=== PATIENT | male | born 2000 | race Hispanic/Latino ===

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

== ENCOUNTER 2020-10-08 00:12 | Emergency (ER) | payer OTHER ==
--- OUTSIDE RECORDS SUMMARY | 2020-10-08 00:18 | XMS REPORT | Continuity of Care Document ---
:2000 Author Organization [facility] t Address [address] [place] [address] Care Team Providers Name Role Phone Lane Martinez Attending Clinician Doctor Unassigned, Name Attending Clinician Unavailable Problems This patient has no known problems. Allergies, Adverse Reactions, Alerts This patient has no known allergies or adverse reactions. Medications This patient has no known medications. Procedures This patient has no known procedures. Encounters Start End Encounter Admission Attending Care Care Encounter Source Date/Time Date/Time Type Type Clinicians Facility Department ID 2020-07-08 2020-07-08 Letter Michelle LOPEZ [id number] 00:00:00 00:00:00 (Out) , Tristan MARQUEZ [id number] [facility] [id number] 2020-06-06 2020-06-06 Orders Doctor [id number] 00:00:00 00:00:00 Only UnassignedALMA [id number] [place] [id number] Results This patient has no known results.
[2020-10-08] MEDS ORDERED: ONDANSETRON 4 MG/2 ML VIAL ONE (01:19)
[2020-10-08] MEDS ORDERED: MORPHINE 4 MG/ML SYR ONE (01:19)
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
[2020-10-08 05:57] VITALS: BP 141/85; TEMP 99.1
[2020-10-08 06:03] VITALS: O2SAT 98
== END 2020-10-08 01:57 | disposition home or self-care (01) ==
LOC: ER 00:12
DX: T23.202A Burn of second degree of left hand, unspecified site, initial encounter (principal); T31.0 Burns involving less than 10% of body surface; X19.XXXA Contact with other heat and hot substances, initial encounter; Y92.000 Kitchen of unspecified non-institutional (private) residence as the place of occurrence of the external cause; F41.9 Anxiety disorder, unspecified; Z98.2 Presence of cerebrospinal fluid drainage device
CPT/HCPCS: 96375; 96374; 99284; J2405

== ENCOUNTER 2021-02-05 07:51 | Emergency (ER) | payer OTHER ==
--- OUTSIDE RECORDS SUMMARY | 2021-02-05 07:54 | XMS REPORT | Continuity of Care Document ---
:2000 Author Organization [facility] t Address [address] [place] [address] Care Team Providers Name Role Phone Tristan Martinez Attending Clinician Doctor Unassigned, Name Attending Clinician Unavailable Payers Payer Name Policy Type Policy Number Effective Date Expiration Date S ource Advance Directives Directive Decision Effective Termination Comments Source Date Date Healthcare Agents on N/A [facility] FileNameRelationshipHealth[facility] Agent Medical RelationshipCommunicationAs[facility] Care [phone] (Mobile) Problems Condition Condition Condition Status Onset Resolution Last Treating Co mments Source Name Details Category Date Date Treatment Clinician Date Shunt Shunt Disease Active [facility] malfunctio malfunctio 04-01 it y of n n 00:00: [place] 00 Medical Branch Allergies, Adverse Reactions, Alerts This patient has no known allergies or adverse reactions. Social History Social Habit Start Date Stop Date Quantity Comments Source Tobacco use and 2018-04-01 2018-04-01 Never used [facility] exposure 00:00:00 [facility] Sex Assigned At [birth year] [facility] 00:00:00 00:00:00 [facility] Branch Smoking Status Start Date Stop Date Source Never smoker [facility] Medications Ordered Filled Start Stop Current Ordering Indication Dosage Frequency Signature Comments Components Source Medication Medication Date Date Medication? Clinician (SIG) Name Name benzonatate 2018-0 Yes 100mg Take 1 Uni vers 100 mg 2-16 capsule by ity of capsule 00:00: mouth 3 [place] 00 (three) Medical times Branch daily as needed for Cough. DO NOT CHEW! ondansetron Yes 4mg Take 1 Univ ers (ZOFRAN 2-16 tablet by ity of ODT) 4 mg 00:00: mouth [place] disintegrat 00 every 8 Medic al ing tablet (eight) Branch hours as needed for Nausea and Vomiting (N/V). sod Yes 1{bottl Use 1 Univers chlor-bicar 2-16 e} Bottle in ity of b-squeez 00:00: each [place] bottle 00 nostril 2 Medical (NEILMED (two) Branch SINUS RINSE times COMPLETE) daily. Use pkdv in hot shower 1 hour before bedtime benzonatate Yes 100mg Take 1 Uni vers 100 mg 2-16 capsule by ity of capsule 00:00: mouth 3 [place] 00 (three) Medical times Branch daily as needed for Cough. DO NOT CHEW! ondansetron Yes 4mg Take 1 Univ ers (ZOFRAN 2-16 tablet by ity of ODT) 4 mg 00:00: mouth [place] disintegrat 00 every 8 Medic al ing tablet (eight) Branch hours as needed for Nausea and Vomiting (N/V). sod Yes 1{bottl Use 1 [facility] chlor-bicar 2-16 e} Bottle in ity of b-squeez 00:00: each [place] bottle 00 nostril 2 Medical (NEILMED (two) Branch SINUS RINSE times COMPLETE) daily. Use pkdv in hot shower 1 hour before bedtime Immunizations Ordered Filled Immunization Date Status Comments [facility] e Immunization Name Name SARS-COV-2 COVID-19 2020-07-04 Completed Unive rsity of PFIZER VACCINE 00:00:00 [facility] SARS-COV-2 COVID-19 2020-06-13 Completed Unive rsity of PFIZER VACCINE 00:00:00 [facility] Influenza Virus 2017-11-19 Completed Universit y of Vaccine 00:00:00 [facility] Influenza Virus 2017-11-19 Completed Universit y of Vaccine 00:00:00 [facility] Procedures Procedure Date / Time Performed Performing Clinician Sour e REFERRAL- 2020-06-06 05:01:00 Doctor Unassigned, No [facility] [place] REQUEST/RESPONSE Name Medical Branch Encounters Start End Encounter Admission Attending Care Care Encounter Source Date/Time Date/Time Type Type Clinicians Facility Department ID 2020-07-08 2020-07-08 Letter Michelle [id number] 00:00:00 00:00:00 (Out) , Tristan Sherman [facility] [id number] [facility] [id number] 2020-07-08 2020-07-08 Veronique Martinez [id number] Univers 00:00:00 00:00:00 (Out) , Tristan Sherman [facility] [id number] ity of HOSPITAL [id number] Bruce as [id number] [facility] 043 Branch 2020-06-06 2020-06-06 Orders Doctor JOHN [id number] Univers 00:00:00 00:00:00 Only Unassigned, [facility] [id number] [facility]y of [place] [facility] [id number] Bruce as [id number] [facility] 009 Branch 2020-06-06 2020-06-06 Orders Doctor JOHN [id number] 00:00:00 00:00:00 Only Unassigned, [facility] [id number] [facility] [id number] Results This patient has no known results.
[2021-02-05] MEDS ORDERED: METOCLOPRAMIDE 10 MG/2mL INJ ONE (08:24)
[2021-02-05] MEDS ORDERED: DIPHENHYDRAMINE 50 MG/ML VIAL ONE (08:24)
[2021-02-05 08:55] LABS: Absolute Lymphocytes (CBC) 2.3 K/uL (0.7-4.9); Basophils % 0.4 % (0-1.3); Hematocrit 42.8 % (39.6-49.0); MPV 9.2 fL (7.6-11.3)
[2021-02-05 09:10] LABS: BUN Blood Urea Nitrogen 11 mg/dL (7-18); Bicarbonate 31 mmol/L (21-32); Glucose Level 98 mg/dL (74-106); Potassium 3.9 mmol/L (3.5-5.1); Sodium Level 144 mmol/L (136-145)
--- NOTE | 2021-02-05 09:24 | RAD REPORT ---
EXAM DESCRIPTION: RAD - Shuntogram - 02/05/2021 9:12 am CLINICAL HISTORY: PAIN COMPARISON: Abdomen Exam Limited dated 09/24/2019 FINDINGS: Right-sided shunt tubing is noted. Calcification along the shunt tubing is seen proximally . No kink or break seen in the visualized tubing. The tip of the shunt tubing terminates in the left lower quadrant. The lungs are clear. The heart is normal in size. No worrisome bone lesion.
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
--- NOTE | 2021-02-05 09:40 | ER ---
Nurse's Notes [facility] Name: Prosper Hardin Age: 20 yrs Sex: Male : 2000 Arrival Date: 02/05/2021 Time: 07:52 Bed 12 Private MD: Tristan Martinez W Diagnosis: Migraine without aura, intractable Presentation: 02/05 08:14 Chief complaint: Patient states: i have pain around my shunt. i also have a headache tw2 for 2 weeks and am constipated. LBM:this Tuesday. Parent and/or Guardian states: he also has decreased appetite for 2 weeks. Coronavirus screen: headache, Client presents with at least one sign or symptom that may indicate coronavirus-19. Standard/surgical mask placed on the client. Provider contacted for isolation considerations. Ebola Screen: Patient denies travel to an Ebola-affected area in the 21 days before illness onset. Initial Sepsis Screen: Does the patient meet any 2 criteria? No. Patient's initial sepsis screen is negative. Does the patient have a suspected source of infection? No. Patient's initial sepsis screen is negative. Risk Assessment: Do you want to hurt yourself or someone else? Patient reports no desire to harm self or others. Onset of symptoms was February 05, 2021. 08:14 Method Of Arrival: Ambulatory tw2 08:14 Acuity: HERNANDEZ 3 tw2 Triage Assessment: 08:15 Headache History: The patient has had previous headaches and this one is similar to tw2 previous episodes. General: Appears in no apparent distress. slender, Behavior is calm, cooperative, appropriate for age. Pain: Complains of pain in left parietal area, right parietal area and occipital area Pain radiates to top of head and forehead Pain currently is 6 out of 10 on a pain scale. Pain began 2 weeks. Pain: Also complains of decreased appetite, constipation. EENT: Reports pain behind both eyes. Neuro: Reports headache. Respiratory: Airway is patent Respiratory effort is even, unlabored, Respiratory pattern is regular, symmetrical. GI: Abdomen is flat, Last BM was February 02, 2021. Reports constipation. Musculoskeletal: Range of motion: intact in all extremities. 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 - Social history:: Smoking status: Reported history of juuling and/or vaping. Screenin:06 Abuse screen: Denies threats or abuse. Nutritional screening: No deficits noted. tw2 Tuberculosis screening: No symptoms or risk factors identified. Fall Risk None identified. Assessment: 08:23 Reassessment: see triage assessment. tw2 09:17 Reassessment: Patient appears in no apparent distress at this time. Patient and/or tw2 family updated on plan of care and expected duration. Pain level reassessed. Patient is alert, oriented x 3, equal unlabored respirations, skin warm/dry/pink. Patient states symptoms have improved. 09:48 Reassessment: Patient appears in no apparent distress at this time. Patient and/or tw2 family updated on plan of care and expected duration. Pain level reassessed. Patient is alert, oriented x 3, equal unlabored respirations, skin warm/dry/pink. Patient states feeling better. Patient states symptoms have improved. Vital Signs: 08:14 BP 128 / 76; Pulse 67; Resp 18; Temp 97.9; Pulse Ox 100% on R/A; tw2 09:48 BP 110 / 74; Pulse 79; Resp 17; Pulse Ox 99% on R/A; Pain 3/10; tw2 ED Course: 07:52 Patient arrived in ED. am2 07:53 Tristan Martinez MD is Private Physician. am2 08:03 Bed in low position. Call light in reach. Adult w/ patient. Pulse ox on. NIBP on. tw2 08:05 Roel Hammer PA is PHCP. jr8 08:05 Kareem Anders MD is Attending Physician. jr8 08:05 Rebekah Warner, VINH is Primary Nurse. tw2 08:15 Triage completed. tw2 08:23 Arm band placed on. tw2 08:26 Inserted saline lock: 20 gauge in right antecubital area, using aseptic technique. tw2 Blood collected. 09:12 Shuntogram XRAY In Process Unspecified. EDMS 09:18 Warm blanket given. tw2 09:48 No provider procedures requiring assistance completed. IV discontinued, intact, tw2 bleeding controlled, No redness/swelling at site. Pressure dressing applied. Administered Medications: 08:28 Drug: Reglan (metoCLOPramide) 10 mg Route: IVP; Site: right antecubital; tw2 09:17 Follow up: Response: No adverse reaction; Pain is decreased tw2 08:38 Drug: Benadryl (diphenhydrAMINE) 25 mg Route: IVP; Site: right antecubital; tw2 09:18 Follow up: Response: No adverse reaction; Pain is decreased tw2 Outcome: 09:40 Discharge ordered by . jr8 09:48 Discharged to home ambulatory, with family. tw2 09:48 Condition: stable 09:48 Discharge instructions given to patient, family, Instructed on discharge instructions, follow up and referral plans. Demonstrated understanding of instructions, follow-up care. 09:48 Patient left the ED. tw2 Signatures: Dispatcher [employer] EDRoel Zarate PA PA jr8 Rebekah Warner RN RN tw2 Rhea Espinoza am2
[2021-02-05 09:59] VITALS: TEMP 97.9
[2021-02-05 10:01] VITALS: BP 110/74; O2SAT 99
== END 2021-02-05 09:48 | disposition home or self-care (01) ==
LOC: ER 07:51
DX: G43.019 Migraine without aura, intractable, without status migrainosus (principal); F41.9 Anxiety disorder, unspecified; Z98.2 Presence of cerebrospinal fluid drainage device
CPT/HCPCS: 85025; 80048; 36415; 75809; 49427; 96375; 96374; 99284; J2765; J1200

== ENCOUNTER 2021-02-26 20:48 | Emergency (ER) | payer OTHER ==
--- OUTSIDE RECORDS SUMMARY | 2021-02-26 20:52 | XMS REPORT | Continuity of Care Document ---
:2000 Author Organization [facility] t Address [address] [place] [address] Care Team Providers Name Role Phone Tristan Martinez Attending Clinician Doctor Unassigned, Name Attending Clinician Unavailable Payers Payer Name Policy Type Policy Number Effective Date Expiration Date S ource Advance Directives Directive Decision Effective Termination Comments Source Date Date Healthcare Agents on N/A [facility] FileNameRelationshipHealthCore[facility] Agent Medical RelationshipCommunicationOhiohealth [facility] Gina MakiPrem[facility] Care [phone] (Mobile) Problems Condition Condition Condition Status Onset Resolution Last Treating Co mments Source Name Details Category Date Date Treatment Clinician Date Shunt Shunt Disease Active [facility] malfunctio malfunctio 04-01 it y of n n 00:00: [place] 00 [facility] Allergies, Adverse Reactions, Alerts This patient has no known allergies or adverse reactions. Social History Social Habit Start Date Stop Date Quantity Comments Source Tobacco use and 2018-04-01 2018-04-01 Never used [facility] exposure 00:00:00 00:00:00 [facility] Sex Assigned At 2000 2000 [facility] 00:00:00 00:00:00 [facility] Smoking Status Start Date Stop Date Source Never smoker [facility] Medications Ordered Filled Start Stop Current Ordering [...] Immunizations Ordered Filled Immunization Date Status Comments [facility] e Immunization Name Name SARS-COV-2 COVID-19 2020-07-04 Completed Unive rsity of PFIZER VACCINE 00:00:00 [facility] SARS-COV-2 COVID-19 2020-06-13 Completed Unive rsity of PFIZER VACCINE 00:00:00 [facility] Influenza Virus 2017-11-19 Completed Universit y of Vaccine 00:00:00 [facility] Influenza Virus 2017-11-19 Completed Universit y of Vaccine 00:00:00 [facility] Procedures Procedure Date / Time Performed Performing Clinician Sour e REFERRAL- 2020-06-06 05:01:00 Doctor Unassigned, No [facility] [place] REQUEST/RESPONSE Name Medical Branch Encounters Start End Encounter Admission Attending Care Care Encounter Source Date/Time Date/Time Type Type Clinicians Facility Department ID 2020-07-08 2020-07-08 Letter Michelle [id number] 00:00:00 00:00:00 (Out) , Tristan Sherman [facility] [id number] [facility] [id number] 043 2020-07-08 2020-07-08 Veronique Martinez [id number] Univers 00:00:00 00:00:00 (Out) , Tristan Sherman [facility] [id number] [facility]y of HOSPITAL [id number] Bruce as [id number] [facility] 043 Branch 2020-06-06 2020-06-06 Orders Doctor JOHN [id number] Univers 00:00:00 00:00:00 Only Unassigned, [facility] [id number] [facility]y of [place] [facility] [id number] Bruce as [id number] [facility] 009 Branch 2020-06-06 2020-06-06 Orders Doctor JOHN [id number] 00:00:00 00:00:00 Only Unassigned, [facility] [id number] [place] [facility] [id number] [id number] Results This patient has no known results.
[2021-02-26] MEDS ORDERED: IBUPROFEN 400 MG TAB ONE (22:03)
--- NOTE | 2021-02-26 23:10 | EDPHYS ---
Physician Documentation [facility] Name: Prosper Hardin Age: 20 yrs Sex: Male : 2000 Arrival Date: 02/26/2021 Time: 20:51 Bed 10 Private MD: Tristan Martinez W ED Physician Dheeraj Koch HPI: 02/26 22:00 This 20 yrs old Male presents to ER via Ambulatory with complaints of Foot Injury. cp 22:00 The patient presents with an injury, pain, that is acute. The complaints affect the cp dorsum of left foot. 22:00 Onset: The symptoms/episode began/occurred 10 day(s) ago. cp 22:00 Context: resulted from wrestling with girlfriend, the patient can fully bear weight, cp the patient is able to ambulate, with mild difficulty, Problem is a result from a previous injury: No. Associated signs and symptoms: Pertinent negatives calf tenderness, numbness, tingling. Historical: - Allergies: 22:07 No Known Allergies; lp1 - Home Meds: 22:07 lamotrigine 25 mg Oral TbDi 1 tab once daily [Active]; lp1 - PMHx: 22:07 Anxiety; Hydrocephalus; SEWER CONNECTOR SHUNT; lp1 - PSHx: 22:07 SEWER CONNECTOR shunt; lp1 - Immunization history:: Client reports receiving the 2nd dose of the Covid vaccine. - Social history:: Smoking status: Reported history of juuling and/or vaping. ROS: 22:05 MS/extremity: Positive for pain, tenderness, of the dorsum of left foot, Negative for cp decreased range of motion, deformity. 22:05 Constitutional: Negative for fever. cp 22:05 Skin: Negative for cellulitis, rash. 22:05 All other systems are negative. Exam: 22:10 Constitutional: The patient appears in no acute distress, alert, awake, well developed, cp well nourished. 22:10 Head/Face: Normocephalic, atraumatic. cp 22:10 Cardiovascular: Rate: normal. 22:10 Respiratory: the patient does not display signs of respiratory distress, Respirations: normal, no use of accessory muscles, no retractions. 22:10 Musculoskeletal/extremity: Extremities: grossly normal except: noted in the dorsum of left foot: pain, tenderness, There is no evidence of decreased ROM, deformity, swelling, Perfusion: the extremity is normally perfused throughout, Sensation intact. 22:10 Skin: cellulitis, is not appreciated, no rash present. Vital Signs: 21:15 BP 126 / 70; Pulse 77; Resp 16; Temp 98.9; Pulse Ox 100% on R/A; Weight 69.85 kg; da3 Height 5 ft. 9 in. (175.26 cm); 21:15 Body Mass Index 22.74 (69.85 kg, 175.26 cm) da3 MDM: 21:45 Patient medically screened. cp 22:00 Differential diagnosis: dislocation, closed fracture, contusion, tendonitis. cp 23:10 Data reviewed: vital signs, nurses notes, radiologic studies, plain films. cp 23:10 Test interpretation: by ED physician or midlevel provider: plain radiologic studies. cp Counseling: I had a detailed discussion with the patient and/or guardian regarding: the historical points, exam findings, and any diagnostic results supporting the discharge/admit diagnosis, radiology results, to return to the emergency department if symptoms worsen or persist or if there are any questions or concerns that arise at home. Response to treatment: the patient's symptoms have mildly improved after treatment, and as a result, I will discharge patient. 02/26 21:23 Order name: Foot Left 3 View XRAY lp1 02/26 22:54 Order name: Crutches; Complete Time: 23:20 cp Administered Medications: 22:06 Drug: Ibuprofen 800 mg Route: PO; lp1 22:55 Follow up: Response: No adverse reaction lp1 Disposition: 23:20 Chart complete. cp 02/27 05:36 Co-signature as Attending Physician, Dheeraj Koch MD I agree with the assessment and rn plan of care. Attestation: The patient's history, exam findings, diagnostics, and a summary of any interventions or procedures was reviewed in detail with Santiago MAGDALENO. Disposition Summary: 02/26/21 23:10 Discharge Ordered Location: Home cp Problem: new cp Symptoms: have improved cp Condition: Stable cp Diagnosis - Other sprain of left foot cp Followup: cp - With: Private Physician - When: 2 - 3 days - Reason: Worsening of condition Discharge Instructions: - Discharge Summary Sheet cp - Foot Sprain cp Forms: - Medication Reconciliation Form cp - Thank You Letter cp - Work release form lp1 - Antibiotic Education cp - Prescription Opioid Use cp Prescriptions: - Ibuprofen 800 mg Oral Tablet - take 1 tablet by ORAL route every 8 hours As needed take with food; 30 tablet; cp Refills: 0, Product Selection Permitted Signatures: Dispatcher [employer] Dheeraj Bower MD MD rn Pena, Laura RN RN lp1 Santiago Wilks PA PA cp Allan, David RN RN da3
--- NOTE | 2021-02-26 23:10 | ER ---
Nurse's Notes [facility] Name: Prosper Hardin Age: 20 yrs Sex: Male : 2000 Arrival Date: 02/26/2021 Time: 20:51 Bed 10 Private MD: Tristan Martinez W Diagnosis: Other sprain of left foot Presentation: 02/26 21:15 Chief complaint: Patient states: lt foot pain. Coronavirus screen: Vaccine status: da3 Patient reports receiving the 2nd dose of the covid vaccine. Ebola Screen: No symptoms or risks identified at this time. Initial Sepsis Screen: Does the patient have a suspected source of infection? No. Patient's initial sepsis screen is negative. Risk Assessment: Do you want to hurt yourself or someone else? Patient reports no desire to harm self or others. Onset of symptoms was February 16, 2021. 21:15 Method Of Arrival: Ambulatory da3 21:15 Acuity: HERNANDEZ 4 da3 21:59 Initial Sepsis Screen: Does the patient meet any 2 criteria? No. Patient's initial lp1 sepsis screen is negative. Triage Assessment: 21:19 General: Appears in no apparent distress. comfortable, Behavior is calm, cooperative. da3 Pain: Denies pain. Complains of pain in left foot Pain currently is 8 out of 10 on a pain scale. Injury Description: pt accidentally kicked friends husain and injured foot. 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 - Social history:: Smoking status: Reported history of juuling and/or vaping. Screenin:46 Abuse screen: Denies threats or abuse. Denies injuries from another. Nutritional lp1 screening: No deficits noted. Tuberculosis screening: No symptoms or risk factors identified. Fall Risk None identified. Assessment: 22:06 General: Appears in no apparent distress. Behavior is appropriate for age. Pain: lp1 Complains of pain in dorsum of left foot Pain currently is 6 out of 10 on a pain scale. Quality of pain is described as aching. Neuro: Level of Consciousness is awake, alert, obeys commands. Cardiovascular: Patient's skin is warm and dry. Respiratory: Respiratory effort is even, unlabored. GI: No signs and/or symptoms were reported involving the gastrointestinal system. : No signs and/or symptoms were reported regarding the genitourinary system. EENT: No signs and/or symptoms were reported regarding the EENT system. Derm: Skin is pink, warm \T\ dry. Musculoskeletal: Circulation, motion, and sensation intact. Range of motion: intact in all extremities, Reports pain in dorsum of left foot since 10 days ago. Vital Signs: 21:15 BP 126 / 70; Pulse 77; Resp 16; Temp 98.9; Pulse Ox 100% on R/A; Weight 69.85 kg; da3 Height 5 ft. 9 in. (175.26 cm); 21:15 Body Mass Index 22.74 (69.85 kg, 175.26 cm) da3 ED Course: 20:51 Patient arrived in ED. es 20:51 Tristan Martinez MD is Private Physician. es 21:19 Triage completed. da3 21:39 Santiago Wilks PA is PHCP. cp 21:39 Dheeraj Koch MD is Attending Physician. cp 21:46 Shana Dorado, VINH is Primary Nurse. lp1 21:46 Arm band placed on. lp1 21:46 Patient has correct armband on for positive identification. lp1 22:02 Foot Left 3 View XRAY In Process Unspecified. EDMS 23:10 No provider procedures requiring assistance completed. Patient did not have IV access lp1 during this emergency room visit. 23:15 Crutch training done. lp1 Administered Medications: 22:06 Drug: Ibuprofen 800 mg Route: PO; lp1 22:55 Follow up: Response: No adverse reaction lp1 Outcome: 23:10 Discharge ordered by . cp 23:19 Discharged to home ambulatory, with crutches, with friend. lp1 23:19 Condition: good 23:19 Discharge instructions given to patient, Instructed on discharge instructions, follow up and referral plans. medication usage, crutch walking, Demonstrated understanding of instructions, follow-up care, medications, crutch walking, Prescriptions given X 1. 23:20 Patient left the ED. lp1 Signatures: Dispatcher [employer] Loretta Miller Laura, RN RN lp1 Santiago Wilks PA PA cp Allan, David, RN RN da3
[2021-02-26 23:35] VITALS: BP 126/70; TEMP 98.9; O2SAT 100
--- NOTE | 2021-02-27 08:08 | RAD REPORT ---
EXAM DESCRIPTION: RAD - Foot Left 3 View - 02/26/2021 10:02 pm CLINICAL HISTORY: PAIN, no trauma history detailed COMPARISON: MRA Head Wo Cont dated 02/26/2021No comparisons FINDINGS: No fracture, dislocation or periosteal reaction. No acute or destructive bony process. No air or foreign body in the soft tissues. IMPRESSION: Negative left foot examination.
== END 2021-02-26 23:20 | disposition home or self-care (01) ==
LOC: ER 20:48
DX: S93.602A Unspecified sprain of left foot, initial encounter (principal); X50.1XXA Overexertion from prolonged static or awkward postures, initial encounter; Y93.72 Activity, wrestling; Y92.009 Unspecified place in unspecified non-institutional (private) residence as the place of occurrence of the external cause
CPT/HCPCS: 99284

== ENCOUNTER 2021-10-22 17:27 | Emergency (ER) | payer OTHER ==
--- OUTSIDE RECORDS SUMMARY | 2021-10-22 17:30 | XMS REPORT | Continuity of Care Document ---
:[address] [facility] t Address [address] [place] [address] Care Team Providers Name Role Phone Tristan Martinez Attending Clinician Doctor Unassigned, [facility] Attending Clinician Unavailable Payers Payer Name Policy Type Policy Number Effective Date Expiration Date S ource Problems Condition Condition Condition Status Onset Resolution Last Treating Co mments Source Name Details Category Date Date Treatment Clinician Date Shunt Shunt Disease [facility] [place] [facility] y of n n 00:00: [place] 00 [facility] Allergies, Adverse Reactions, Alerts This patient has no known allergies or adverse reactions. Social History Social Habit Start Date Stop Date Quantity Comments Source Tobacco use and 2018-04-01 2018-04-01 Never used [facility] exposure 00:00:00 00:00:00 [facility] Sex Assigned At 2000 2000 [facility] 00:00:00 00:00:00 [facility] Smoking Status Start Date Stop Date Source Never smoker [facility] Medications Ordered Filled Start Stop Current Ordering Indication Dosage Frequency Signature Comments Components Source Medication Medication Date Date Medication? Clinician (SIG) Name Name benzonatate 0 Yes 100mg Take 1 Uni vers 100 mg 2-16 capsule by ity of capsule 00:00: mouth 3 [place] 00 (three) Medical times Branch daily as needed for Cough. DO NOT CHEW! ondansetron 0 Yes 4mg Take 1 Univ ers (ZOFRAN [...] Immunizations Ordered Filled Immunization Date Status Comments [facility] e Immunization Name Name SARS-COV-2 COVID-19 2020-07-04 Completed Unive rsity of PFIZER VACCINE 00:00:00 [facility] [place] SARS-COV-2 COVID-19 2020-06-13 Completed Unive rsity of PFIZER VACCINE 00:00:00 [facility] [place] Influenza Virus 2017-11-19 Completed Universit y of Vaccine 00:00:00 [facility] Influenza Virus 2017-11-19 Completed Universit y of Vaccine 00:00:00 [facility] Procedures Procedure Date / Time Performed Performing Clinician [facility] e REFERRAL- 2020-06-06 05:01:00 Doctor Unassigned, No [facility] [place] REQUEST/RESPONSE Name Medical Branch Encounters Start End Encounter Admission Attending Care Care Encounter Source Date/Time Date/Time Type Type Clinicians Facility Department ID 2020-07-08 2020-07-08 Letter Michelle LOPEZ [id number] 00:00:00 00:00:00 (Out) , Tristan W [facility] [id number] [facility] [id number] 2020-07-08 2020-07-08 Letter Michelle LOPEZ [id number] Univers 00:00:00 00:00:00 (Out) , Tristan Sherman [facility] [id number] ity of HOSPITAL [id number] Bruce as [id number] [facility] [address] [place] 2020-06-06 2020-06-06 Orders Doctor LOPEZ [id number] Univers 00:00:00 00:00:00 Only Unassigned, [facility] [id number] ity of [facility] [id number] Bruce as [id number] [facility] [address] [place] 2020-06-06 2020-06-06 Orders Doctor LOPEZ [id number] 00:00:00 00:00:00 Only [facility]igned[facility] [id number] [facility] [id number] [id number] Results This patient has no known results.
[2021-10-22] MEDS ORDERED: ONDANSETRON 4 MG/2 ML VIAL ONE (17:57)
[2021-10-22] MEDS ORDERED: NA CHLORIDE 0.9% 1,000 ML ONE (17:57)
[2021-10-22 18:09] LABS: Absolute Lymphocytes (CBC) 2.1 K/uL (0.7-4.9); Lymphocytes % 29.4 % (15.3-44.8); MCV 88.7 fL (80-100); MPV 9.1 fL (7.6-11.3)
[2021-10-22 18:12] LABS: Albumin 4.8 g/dL (3.4-5.0); Bilirubin Total 2.5 mg/dL (0.2-1.0); Potassium 3.7 mmol/L (3.5-5.1); Protein, Total 8.4 g/dL (6.4-8.2)
[2021-10-22 19:29] LABS: Urine Blood Negative (Negative); Urine Glucose Negative (Negative); Urine Protein Negative (Negative); Urine pH 6.5 (5.0-7.0)
--- NOTE | 2021-10-22 19:57 | EDPHYS ---
Physician Documentation [facility] Name: Prosper Hardin Age: 21 yrs Sex: Male : 2000 Arrival Date: 10/22/2021 Time: 17:29 Bed 11 Private MD: ED Physician Kareem Anders HPI: 10/23 00:13 This 21 yrs old Male presents to ER via Ambulatory with complaints of Vomiting. kb 00:13 The patient presents to the emergency department with nausea, vomiting. Onset: The kb symptoms/episode began/occurred 3 day(s) ago. Possible causes: unknown. The symptoms are aggravated by nothing. The symptoms are alleviated by nothing. Associated signs and symptoms: Pertinent positives: fever, nausea, vomiting. Severity of symptoms: At their worst the symptoms were moderate in the emergency department the symptoms are unchanged. The patient has not experienced similar symptoms in the past. The patient has not recently seen a physician. 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 - Social history:: Smoking status: Reported history of juuling and/or vaping. Patient/guardian denies using alcohol. ROS: 10/23 00:12 ENT: Negative for injury, pain, and discharge. kb Constitutional: Positive for fever. Abdomen/GI: Positive for nausea and vomiting, Negative for abdominal pain, diarrhea, constipation. All other systems are negative. Exam: 00:12 Constitutional: This is a well developed, well nourished patient who is awake, alert, kb and in no acute distress. Head/Face: Normocephalic, atraumatic. ENT: Moist Mucous membranes Cardiovascular: Regular rate and rhythm with a normal S1 and S2. No gallops, murmurs, or rubs. No pulse deficits. Respiratory: Respirations even and unlabored. No increased work of breathing. Talking in full sentences Abdomen/GI: Soft, non-tender. No distention Skin: Warm, dry with normal turgor. Normal color. MS/ Extremity: Pulses equal, no cyanosis. Neurovascular intact. Full, normal range of motion. Neuro: Awake and alert, GCS 15, oriented to person, place, time, and situation. Moves all extremities. Normal gait. Psych: Awake, alert, with orientation to person, place and time. Behavior, mood, and affect are within normal limits. Vital Signs: 10/22 17:37 BP 138 / 82; Pulse 90; Resp 18; Temp 98.0(TE); Pulse Ox 100% on R/A; Weight 63.5 kg; ld1 Height 5 ft. 9 in. (175.26 cm); Pain 0/10; 19:00 BP 106 / 61; Pulse 60; Resp 18; Temp 97.9; Pulse Ox 97% on R/A; eh3 17:37 Body Mass Index 20.67 (63.50 kg, 175.26 cm) ld1 MDM: 17:39 Patient medically screened. kb 10/23 00:10 Data reviewed: vital signs, nurses notes. Data interpreted: Pulse oximetry: on room air kb is 97 %. Interpretation: normal. Counseling: I had a detailed discussion with the patient and/or guardian regarding: the historical points, exam findings, and any diagnostic results supporting the discharge/admit diagnosis, lab results, the need for outpatient follow up, a family practitioner, to return to the emergency department if symptoms worsen or persist or if there are any questions or concerns that arise at home. 00:12 ED course: Patient feeling better and tolerating p.o. intake prior to discharge.. kb 10/22 17:39 Order name: Flu; Complete Time: 18:14 kb 10/22 17:39 Order name: COVID-19 SARS RT PCR (Document "Date of Onset" if Symptomatic); Complete kb Time: 18:47 10/22 17:39 Order name: CBC with Diff; Complete Time: 18:11 kb 10/22 17:39 Order name: CMP; Complete Time: 18:14 kb 10/22 17:39 Order name: Lipase; Complete Time: 18:14 kb 10/22 19:30 Order name: Urine Dipstick-Ancillary; Complete Time: 19:40 EDMS 10/22 17:39 Order name: IV Saline Lock; Complete Time: 17:44 kb 10/22 17:39 Order name: Labs collected and sent; Complete Time: 17:44 kb 10/22 18:48 Order name: PO challenge; Complete Time: 19:09 kb Administered Medications: 10/22 17:57 Drug: NS 0.9% 1000 ml Route: IV; Rate: 1 bolus; Site: right antecubital; eh3 18:48 Follow up: Response: No adverse reaction; IV Status: Completed infusion; IV Intake: eh3 1000ml 17:58 Drug: Zofran (Ondansetron) 4 mg Route: IVP; Site: right antecubital; eh3 18:27 Follow up: Response: No adverse reaction; Marked relief of symptoms eh3 Disposition: 10/23 09:08 Co-signature as Attending Physician, Kareem Anders MD I agree with the assessment and kdr plan of care. Disposition Summary: 10/22/21 19:57 Discharge Ordered Location: Home kb Condition: Stable kb Diagnosis - Noninfective gastroenteritis and colitis, unspecified kb Followup: kb - With: Emergency Department - When: As needed - Reason: Worsening of condition Followup: kb - With: Private Physician - When: 2 - 3 days - Reason: Recheck today's complaints, Continuance of care, Re-evaluation by your physician Discharge Instructions: - Discharge Summary Sheet kb - Food Choices to Help Relieve Diarrhea, Adult kb - Viral Gastroenteritis, Adult kb Forms: - Medication Reconciliation Form kb - Thank You Letter kb - Antibiotic Education kb - Prescription Opioid Use kb Prescriptions: - Zofran 4 mg Oral Tablet - take 1 tablet by ORAL route every 6 hours As needed; 20 tablet; Refills: 0, kb Product Selection Permitted Signatures: Dispatcher [employer] EDNE Dara Dominguez, GLAZE SUPERVISOR-C GLAZE SUPERVISOR-Kareem Conroy MD MD kdr Dibbern, Lauren, RN RN ld1 Holley Reyes eh3
--- NOTE | 2021-10-22 19:57 | ER ---
Nurse's Notes [facility] Name: Prosper Hardin Age: 21 yrs Sex: Male : 2000 Arrival Date: 10/22/2021 Time: 17:29 Bed 11 Private MD: Diagnosis: Noninfective gastroenteritis and colitis, unspecified Presentation: 10/22 17:37 Chief complaint: Patient states: Vomiting, fever X 3 days. Coronavirus screen: At this ld1 time, the client does not indicate any symptoms associated with coronavirus-19. Ebola Screen: No symptoms or risks identified at this time. Initial Sepsis Screen: Does the patient meet any 2 criteria? No. Patient's initial sepsis screen is negative. Does the patient have a suspected source of infection? No. Patient's initial sepsis screen is negative. Risk Assessment: Do you want to hurt yourself or someone else? Patient reports no desire to harm self or others. Onset of symptoms was October 22, 2021 at 17:39. 17:37 Method Of Arrival: Ambulatory ld1 17:37 Acuity: HERNANDEZ 3 ld1 Triage Assessment: 17:39 General: Appears in no apparent distress. comfortable, Behavior is calm, cooperative, ld1 appropriate for age. Pain: Denies pain. EENT: No signs and/or symptoms were reported regarding the EENT system. Neuro: Level of Consciousness is awake, alert, obeys commands, Oriented to person, place, time, situation. Cardiovascular: Capillary refill < 3 seconds Patient's skin is warm and dry. Respiratory: Airway is patent Respiratory effort is even, unlabored. GI: Abdomen is flat, non-distended, Reports nausea, vomiting. : No signs and/or symptoms were reported regarding the genitourinary system. Derm: No signs and/or symptoms reported regarding the dermatologic system. Musculoskeletal: No signs and/or symptoms reported regarding the musculoskeletal system. 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 - Social history:: Smoking status: Reported history of juuling and/or vaping. Patient/guardian denies using alcohol. Screenin:58 Abuse screen: Denies threats or abuse. Denies injuries from another. Nutritional eh3 screening: No deficits noted. Tuberculosis screening: No symptoms or risk factors identified. Fall Risk None identified. Assessment: 17:58 Reassessment: No changes from previously documented assessment. See triage assessment. eh3 GI: Abdomen is flat, non-distended, Bowel sounds present X 4 quads. Abd is soft and non tender X 4 quads. Vital Signs: 17:37 BP 138 / 82; Pulse 90; Resp 18; Temp 98.0(TE); Pulse Ox 100% on R/A; Weight 63.5 kg; ld1 Height 5 ft. 9 in. (175.26 cm); Pain 0/10; 19:00 BP 106 / 61; Pulse 60; Resp 18; Temp 97.9; Pulse Ox 97% on R/A; eh3 17:37 Body Mass Index 20.67 (63.50 kg, 175.26 cm) ld1 ED Course: 17:29 Patient arrived in ED. rg4 17:34 [facility] kb 17:34 Kareem Anders MD is Attending Physician. kb 17:39 Triage completed. ld1 17:40 Arm band placed on right wrist. ld1 17:44 Marah Menon, VINH is Primary Nurse. ld1 17:44 COVID-19 SARS RT PCR (Document "Date of Onset" if Symptomatic) Sent. ld1 17:44 Flu Sent. ld1 17:45 No provider procedures requiring assistance completed. Inserted saline lock: 20 gauge ld1 in right antecubital area, using aseptic technique. Blood collected. 17:58 Patient has correct armband on for positive identification. Bed in low position. Call eh3 light in reach. Side rails up X2. 18:11 Door closed. Noise minimized. Lights dimmed. Warm blanket given. Diet: Vomited eh3 food/fluids. Provided emesis container. 19:09 Diet: Patient given water. Tolerated well. eh3 20:07 IV discontinued, intact, bleeding controlled, No redness/swelling at site. Pressure eh3 dressing applied. Administered Medications: 17:57 Drug: NS 0.9% 1000 ml Route: IV; Rate: 1 bolus; Site: right antecubital; eh3 18:48 Follow up: Response: No adverse reaction; IV Status: Completed infusion; IV Intake: eh3 1000ml 17:58 Drug: Zofran (Ondansetron) 4 mg Route: IVP; Site: right antecubital; eh3 18:27 Follow up: Response: No adverse reaction; Marked relief of symptoms eh3 Medication: 19:35 VIS not applicable for this client. eh3 Intake: 18:48 IV: 1000ml; Total: 1000ml. eh3 Outcome: 19:57 Discharge ordered by . diogo 20:07 Discharged to home ambulatory. eh3 20:07 Condition: stable 20:07 Discharge instructions given to patient, Instructed on discharge instructions, follow up and referral plans. medication usage, Demonstrated understanding of instructions, follow-up care, medications, Prescriptions given X 1. 20:07 Patient left the ED. eh3 Signatures: Dara Dominguez, CARLIE-C SUPERVISOR DEHYDROGENATION-Luz Canchola rg4 Marah Menon, VINH RN ld1 Holley Reyes eh3 Corrections: (The following items were deleted from the chart) 19:05 17:58 GI: Abd is soft and non tender X 4 quads. eh3 eh3 19:34 19:33 Diet: Patient given water. Tolerated well eh3 eh3
[2021-10-22 21:55] VITALS: BP 106/61; TEMP 97.9; O2SAT 97
== END 2021-10-22 20:07 | disposition home or self-care (01) ==
LOC: ER 17:27
DX: K52.9 Noninfective gastroenteritis and colitis, unspecified (principal); Z20.822 Contact with and (suspected) exposure to COVID-19; Z98.2 Presence of cerebrospinal fluid drainage device
CPT/HCPCS: 96361; 85025; 36415; 81003; 83690; 80053; 87804 ×2; 96374; 99284; U0003; J7030; J2405

== ENCOUNTER 2021-10-28 11:51 | Emergency (ER) | payer OTHER ==
--- OUTSIDE RECORDS SUMMARY | 2021-10-28 11:55 | XMS REPORT | Continuity of Care Document ---
:2000 Author Organization [facility] t Address [address] [place] [address] Care Team Providers Name Role Phone Tristan Martinez Attending Clinician Doctor Unassigned, [place] [facility] Attending Clinician Unavailable Payers Payer Name Policy Type Policy Number Effective Date Expiration Date S ource Problems Condition Condition Condition Status Onset Resolution Last Treating Co mments Source Name Details Category Date Date Treatment Clinician Date [facility] n [facility]: [place] [facility] Allergies, Adverse Reactions, Alerts This patient has no known allergies or adverse reactions. Social History Social Habit Start Date Stop Date Quantity Comments Source Tobacco use and 2018-04-01 2018-04-01 Never used [facility] exposure 00:00:00 00:00:00 [facility] Sex Assigned At 2000 2000 [facility] 00:00:00 00:00:00 [facility] Smoking Status Start Date Stop Date Source Never smoker [facility] Medications Ordered Filled Start Stop Current Ordering Indication Dosage Frequency Signature Comments Components Source Medication Medication Date Date Medication? Clinician (SIG) Name Name benzonatate Yes 100mg Take 1 Uni vers [...] hot shower 1 hour before bedtime benzonatate 2017- Yes 100mg Take 1 Uni vers 100 [...] Immunizations Ordered Filled Immunization Date Status Comments [facility] e Immunization Name Name SARS-COV-2 COVID-19 2020-07-04 Completed Unive rsity of PFIZER VACCINE 00:00:00 [facility] SARS-COV-2 COVID-19 2020-06-13 Completed Unive rsity of PFIZER VACCINE 00:00:00 [facility] Influenza Virus 2017-11-19 Completed Universit y of Vaccine 00:00:00 [facility] Influenza Virus 2017-11-19 Completed Universit y of Vaccine 00:00:00 [facility] Procedures Procedure Date / Time Performed Performing Clinician [facility] e REFERRAL- 2020-06-06 05:01:00 Doctor Unassigned, No [facility] [place] REQUEST/RESPONSE Name Medical Branch Encounters Start End Encounter Admission Attending Care Care Encounter Source Date/Time Date/Time Type Type Clinicians Facility Department ID 2020-07-08 2020-07-08 Letter Michelle LOPEZ [id number] 00:00:00 00:00:00 (Out) , Tristan MARQUEZ [id number] HOSPITAL [id number] 2020-07-08 2020-07-08 Letter Michelle LOPEZ [id number] Univers 00:00:00 00:00:00 (Out) , Tristan Sherman [facility] [id number] ity of HOSPITAL [id number] Bruce as [id number] [facility] [address]43 [place] 2020-06-06 2020-06-06 Orders Doctor JOHN [id number] Univers 00:00:00 00:00:00 Only Unassigned, [facility] [id number] ity of [place] [facility] [id number] Bruce as [id number] [facility] 00[address] [place] 2020-06-06 2020-06-06 Orders Doctor LOPEZ [id number] 00:00:00 00:00:00 Only UnassignedALMA [id number] [facility] [address] [facility] [id number] Results This patient has no known results.
--- NOTE | 2021-10-28 13:20 | ER ---
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 Coronavirus screen: At this time, the client does not indicate any symptoms associated with coronavirus-19. Ebola Screen: No symptoms or risks identified at this time. Initial Sepsis Screen: Does the patient meet any 2 criteria? No. Patient's initial sepsis screen is negative. Does the patient have a suspected source of infection? No. Patient's initial sepsis screen is negative. Risk Assessment: Do you want to hurt yourself or someone else? Patient reports no desire to harm self or others. Onset of symptoms was October 28, 2021. 12:12 Method Of Arrival: Ambulatory ld1 12:12 Acuity: HERNANDEZ 4 ld1 Triage Assessment: 12:13 General: Appears in no apparent distress. comfortable, Behavior is calm, cooperative, ld1 appropriate for age. Pain: Complains of pain in low back area and mid back area Pain does not radiate. Pain currently is 8 out of 10 on a pain scale. Quality of pain is described as sharp, tender, throbbing. EENT: No signs and/or symptoms were reported regarding the EENT system. Neuro: Level of Consciousness is awake, alert, obeys commands, Oriented to person, place, time, situation. Cardiovascular: Capillary refill < 3 seconds Patient's skin is warm and dry. Respiratory: Airway is patent Respiratory effort is even, unlabored. GI: Abdomen is flat, non-distended. : No signs and/or symptoms were reported regarding the genitourinary system. Derm: No signs and/or symptoms reported regarding the dermatologic system. Musculoskeletal: No signs and/or symptoms reported regarding the musculoskeletal system. Historical: - Allergies: 12:13 No Known Allergies; ld1 - PMHx: 12:13 Anxiety; depressive disorder; Hydrocephalus; REIMBURSEMENT SPECIALIST SHUNT; ld1 - PSHx: 12:13 REIMBURSEMENT SPECIALIST shunt; ld1 - Immunization history:: Adult Immunizations up to date, Client reports receiving the 2nd dose of the Covid vaccine. - Social history:: Smoking status: Reported history of juuling and/or vaping. Patient/guardian denies using alcohol. Screenin:50 Abuse screen: Denies threats or abuse. Denies injuries from another. Nutritional iw screening: No deficits noted. Tuberculosis screening: No symptoms or risk factors identified. Fall Risk None identified. Assessment: 13:00 General: Appears in no apparent distress. comfortable, Behavior is calm, cooperative. iw Pain: Complains of pain in mid back area and low back area. Neuro: Level of Consciousness is awake, alert, obeys commands, Oriented to person, place, time, situation, Moves all extremities. Vital Signs: 12:12 BP 131 / 62; Pulse 74; Resp 16; Temp 97.6; Pulse Ox 100% on R/A; Weight 63.5 kg; Height ld1 5 ft. 9 in. (175.26 cm); Pain 6/10; 12:12 Body Mass Index 20.67 (63.50 kg, 175.26 cm) ld1 ED Course: 11:54 Patient arrived in ED. rg4 12:13 Triage completed. ld1 12:14 Arm band placed on left wrist. ld1 12:41 Wendi iSms, VINH is Primary Nurse. iw 12:47 Alfredo Johnston MD is Attending Physician. sp3 13:00 Patient has correct armband on for positive identification. iw 13:50 No provider procedures requiring assistance completed. Patient did not have IV access iw during this emergency room visit. Administered Medications: 13:51 Drug: Ketorolac 60 mg Route: IM; Site: left gluteus; iw 14:10 Follow up: Response: No adverse reaction; Pain is decreased iw Medication: 14:10 VIS not applicable for this client. iw Outcome: 13:19 Discharge ordered by . sp3 13:50 Discharged to home ambulatory. iw 13:50 Condition: good 13:50 Discharge instructions given to patient, Instructed on discharge instructions, follow up and referral plans. Demonstrated understanding of instructions, follow-up care, medications, Prescriptions given X 2. 13:51 Patient left the ED. iw Signatures: Wendi Sims RN RN iw Luz Dominguez rg4 Marah Menon RN RN ld1 Alfredo Johnston MD MD sp3 Corrections: (The following items were deleted from the chart) 12:14 12:12 Pulse 74bpm; Resp 16bpm; Pulse Ox 100% RA; Temp 97.6F; 63.5 kg; Height 5 ft. 9 ld1 in.; BMI: 20.6; Pain 6/10; ld1
--- NOTE | 2021-10-28 13:20 | EDPHYS ---
Physician Documentation [facility] Name: Prosper Hardin Age: 21 yrs Sex: Male : 2000 Arrival Date: 10/28/2021 Time: 11:54 Bed 9 Private MD: ED Physician Alfredo Johnston HPI: 10/28 13:07 This 21 yrs old Male presents to ER via Ambulatory with complaints of Back Injury. sp3 13:07 -year-old male with history of hydrocephalus status post INCENDIARY POWDER MIXER shunt, anxiety presents sp3 with left-sided muscular back pain for 24 to 48 hours "pulling it" at [employer]. 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 He has no midline back pain, no bony pain, no loss of bowel or bladder control, no neurological symptoms, no numbness or tingling, and is fully ambulatory at this time. He denies any other review of systems including fever, headache, chest pain, abdominal pain, nausea, vomiting, diarrhea, rash, or any other sx at this time.. Historical: - Allergies: 12:13 No Known Allergies; ld1 - PMHx: 12:13 Anxiety; depressive disorder; Hydrocephalus; INCENDIARY POWDER MIXER SHUNT; ld1 - PSHx: 12:13 INCENDIARY POWDER MIXER shunt; ld1 - Immunization history:: Adult Immunizations up to date, Client reports receiving the 2nd dose of the Covid vaccine. - Social history:: Smoking status: Reported history of juuling and/or vaping. Patient/guardian denies using alcohol. ROS: 13:16 Constitutional: Negative for fever, chills, and weight loss, Eyes: Negative for injury, sp3 pain, redness, and discharge, ENT: Negative for injury, pain, and discharge, Neck: Negative for injury, pain, and swelling, Cardiovascular: Negative for chest pain, palpitations, and edema, Respiratory: Negative for shortness of breath, cough, wheezing, and pleuritic chest pain, Abdomen/GI: Negative for abdominal pain, nausea, vomiting, diarrhea, and constipation, MS/Extremity: Negative for injury and deformity, Skin: Negative for injury, rash, and discoloration, Neuro: Negative for headache, weakness, numbness, tingling, and seizure, Psych: Negative for depression, anxiety, suicide ideation, homicidal ideation, and hallucinations, Allergy/Immunology: Negative for hives, rash, and allergies, Endocrine: Negative for neck swelling, polydipsia, polyuria, polyphagia, and marked weight changes. 13:16 All other systems are negative. Exam: 13:17 Constitutional: This is a well developed, well nourished patient who is awake, alert, sp3 and in no acute distress. Head/Face: Normocephalic, atraumatic. Neck: Trachea midline, no thyromegaly or masses palpated, and no cervical lymphadenopathy. Supple, full range of motion without nuchal rigidity, or vertebral point tenderness. No Meningismus. Chest/axilla: Normal chest wall appearance and motion. Nontender with no deformity. No lesions are appreciated. Cardiovascular: Regular rate and rhythm with a normal S1 and S2. No gallops, murmurs, or rubs. Normal PMI, no JVD. No pulse deficits. Respiratory: Lungs have equal breath sounds bilaterally, clear to auscultation and percussion. No rales, rhonchi or wheezes noted. No increased work of breathing, no retractions or nasal flaring. Abdomen/GI: Soft, non-tender, with normal bowel sounds. No distension or tympany. No guarding or rebound. No evidence of tenderness throughout. Skin: Warm, dry with normal turgor. Normal color with no rashes, no lesions, and no evidence of cellulitis. MS/ Extremity: Pulses equal, no cyanosis. Neurovascular intact. Full, normal range of motion. Neuro: Awake and alert, GCS 15, oriented to person, place, time, and situation. Cranial nerves II-XII grossly intact. Motor strength 5/5 in all extremities. Sensory grossly intact. Cerebellar exam normal. Normal gait. Psych: Awake, alert, with orientation to person, place and time. Behavior, mood, and affect are within normal limits. 13:17 Back: He has point tenderness in the latissimus dorsi muscle on the left lateral side just above the pelvic crest. Pain is reproducible. There is no midline tenderness. Neurological exam is normal. Patient is ambulatory.. Vital Signs: 12:12 BP 131 / 62; Pulse 74; Resp 16; Temp 97.6; Pulse Ox 100% on R/A; Weight 63.5 kg; Height ld1 5 ft. 9 in. (175.26 cm); Pain 6/10; 12:12 Body Mass Index 20.67 (63.50 kg, 175.26 cm) ld1 MDM: 13:02 Patient medically screened. sp3 13:17 Data reviewed: vital signs, nurses notes. ED course: Clearly has musculoskeletal sp3 strain. Will administer Toradol IM and discharged on Flexeril and diclofenac p.o. At this time do not believe patient has any other critical findings including epidural abscess, fracture, vascular compromise, kidney stone, any other etiologies.. Administered Medications: 13:51 Drug: Ketorolac 60 mg Route: IM; Site: left gluteus; iw 14:10 Follow up: Response: No adverse reaction; Pain is decreased iw Disposition Summary: 10/28/21 13:19 Discharge Ordered Location: Home sp3 Condition: Stable sp3 Diagnosis - Strain of muscle, fascia and tendon of lower back sp3 Followup: sp3 - With: Private Physician - When: 1 week - Reason: Recheck today's complaints Discharge Instructions: - Discharge Summary Sheet sp3 - Muscle Strain sp3 Forms: - Medication Reconciliation Form sp3 - Thank You Letter sp3 - Antibiotic Education sp3 - Prescription Opioid Use sp3 Prescriptions: - Diclofenac Sodium 75 mg Oral Tablet Sustained Release - take 1 tablet by ORAL route 2 times per day; 30 tablet; Refills: 0, Product sp3 Selection Permitted - Cyclobenzaprine 5 mg Oral Tablet - take 1 tablet by ORAL route 3 times per day As needed; 15 tablet; Refills: 0, sp3 Product Selection Permitted Signatures: Wendi Sims RN RN Marah Menon RN RN ld1 Alfredo Johnston MD MD sp3
[2021-10-28] MEDS ORDERED: KETOROLAC 30 MG/ML INJ ONE (13:52)
[2021-10-28 18:43] VITALS: BP 131/62; TEMP 97.6; O2SAT 100
== END 2021-10-28 13:51 | disposition home or self-care (01) ==
LOC: ER 11:51
DX: S39.012A Strain of muscle, fascia and tendon of lower back, initial encounter (principal); Z98.2 Presence of cerebrospinal fluid drainage device
CPT/HCPCS: 96372; 99283